=== PATIENT | female | born 1980 | race African-American/Black ===

== ENCOUNTER 2021-02-21 05:02 | Emergency (ER) | payer MEDICAID, OTHER ==
[~2021-02-21] VITALS: Ht 180.3 cm; Wt 90.7 kg
[2021-02-21] MEDS ORDERED: diphenhdrAMINE HCL 50 MG/1 ML VL IV ONE (05:15)
[2021-02-21] MEDS ORDERED: EPINEPHrine HCL 1 MG/1 ML AMP IM ONE (05:15)
[2021-02-21] MEDS ORDERED: methylPREDNISolone SOD SUCC 125 MG/2 ML VL IV ONE (05:15)
[2021-02-21 07:28] LABS: Basophils # (auto) 0.1 10 ^3/uL (0-0.2); Basophils % (auto) 0.6 % (0.0-2.0); Eosinophils # (auto) 0.1 10 ^3/uL (0-0.8); Eosinophils % (auto) 1.2 % (0.0-7.0); Hematocrit 36.4 % (36.0-46.0); Hemoglobin 12.3 g/dL (12.2-16.2); Lymphocytes # (auto) 0.9 10 ^3/uL (0.4-5.4); Lymphocytes % (auto) 9.2 % (10.0-50.0); Mean Corpuscular Hemoglobin 31.9 pg (28.0-32.0); Mean Corpuscular Hgb Conc. 33.7 g/dL (32.0-36.0); Mean Corpuscular Volume 94.8 fL (80.0-100.0); Monocytes # (auto) 0.2 10 ^3/uL (0-1.3); Monocytes % (auto) 1.7 % (0.0-12.0); Neutrophils # (auto) 8.9 10 ^3/uL (1.6-8.6); Neutrophils % (auto) 87.3 % (37.0-80.0); Platelet Count (auto) 314 10^3/uL (140-450); Red Blood Cells 3.84 10^6/uL (4.0-5.20); Red Cell Distribution Width 13.6 % (11.8-14.3); White Blood Cell 10.1 10^3/uL (4.4-10.8)
[2021-02-21 07:33] LABS: INR 1.08 (0.9-1.15)
[2021-02-21 07:47] LABS: Albumin 3.5 g/dL (3.4-5.0); Calcium 8.6 mg/dL (8.5-10.1); Potassium 3.9 mmol/L (3.5-5.1)
[2021-02-21 07:50] LABS: BUN/Creatinine Ratio 11.5; Bilirubin, Total 0.6 mg/dL (0.2-1.0); CRP High Sensitivity 0.14 mg/dL (< 0.3); Total Protein 6.9 g/dL (6.4-8.2)
[2021-02-21] MEDS ORDERED: IOHEXOL 300 MG/ML 100ML BOTTLE IJ ONE (08:57)
[2021-02-21] MEDS ORDERED: EPINEPHrine HCL 1 MG/1 ML AMP SC ONE (10:45)
[2021-02-21] MEDS ORDERED: POTASSIUM CHL 10 Meq TABLET PO ONE (12:30)
[2021-02-21] MEDS ORDERED: FUROSEMIDE 20 MG TAB PO ONE (12:30)
[2021-02-21 12:39] VITALS: BP 159/116
== END 2021-02-21 13:35 | disposition home or self-care (01) ==
LOC: ER 05:02
DX: T78.3XXA Angioneurotic edema, initial encounter (principal); Z20.822 Contact with and (suspected) exposure to COVID-19
CPT/HCPCS: 36415; 70491; 71045; 80053; 85025; 85610; 85652; 86141; 86160; 87426; 96372; 96374; 96375; 99285; J0171; J1200; J2930; Q9967